=== PATIENT | male | born 1985 | race Caucasian/White ===

== ENCOUNTER → 2017-09-03 | Outpatient (CLI) | payer OTHER ==
--- NOTE | ~2017-09-03 | 2DMMODE ---
[facility] [employer] [employer] [address] 2 D/M-MODE ECHOCARDIOGRAM Name: DEGROOTANTONIO Room #: REG [facility]#: [id number] Admission: 09/03/17 Attend Phys: Johnathon Kinsey MD Discharge: Date of : 89 Date of Service: 09/03/17 1607 Report #: [id number] THIS REPORT FOR: //name// APPROVED REPORT Study performed: 09/03/2017 13:54:15 EXAM: Comprehensive 2D, Doppler, and color-flow Echocardiogram Patient Location: Echo lab Status: routine BSA: 2.06 HR: 74 bpm BP: 133/94 mmHg Other Information Study Quality: Adequate Indications Palpitations 2D Dimensions RVDd: 33.40 mm LVEF(%): 68.77 (>50%) IVSd: 8.47 (7-11mm) LVOT Diam: 23.52 (18-24mm) LVDd: 45.50 mm PWd: 9.29 (7-11mm) Ascending Ao: 26.51 (22-36mm) LVDs: 28.03 (25-40mm) Aortic Root: 30.33 mm IVC: 14.00 mm Hutchinson's LVEF: 68.77 % Volumes Left Atrial Volume (Systole) Single Plane 4CH: 14.86 mL Single Plane 2CH: 23.94 mL LA ESV Index: 11.00 mL/m2 Aortic Valve AoV Peak Stanley.: 1.19 m/s AO Peak Gr.: 5.67 mmHg LVOT Max P.65 mmHg LVOT Max V: 1.08 m/s RANJANA Vmax: 3.93 cm2 Mitral Valve E/A Ratio: 1.4 MV Decel. Time: 225.67 ms MV E Max Stanley.: 0.82 m/s [facility] [place] [address] 2 D/M-MODE ECHOCARDIOGRAM Name: DEGROOTANTONIO RITO Room #: REG [facility].#: [id number] Admission: 09/03/17 Attend Phys: Johnathon Kinsey MD Discharge: Date of : 89 Date of Service: 09/03/17 1607 Report #: [id number] MV A Stanley.: 0.59 m/s MV PHT: 65.44 ms IVRT: 65.74 ms Pulmonary Valve PV Peak Stanley.: 1.06 m/s PV Peak Gr.: 4.50 mmHg Pulmonary Vein P Vein S: 0.68 m/s P Vein D: 0.57 m/s P Vein S/D Ratio: 1.19 Tricuspid Valve RAP Estimate: 5.00 mmHg Left Ventricle The left ventricle is normal size. There is normal left ventricular wall thickness. The left ventricular systolic function is normal. The left ventricular ejection fraction is within the normal range. LVEF is 60-65%. The left ventricular diastolic function is normal. Right Ventricle The right ventricle is normal size. The right ventricular systolic function is normal. Atria The left atrium size is normal. The right atrium size is normal. Aortic Valve The aortic valve is normal in structure. No aortic regurgitation is present. There is no aortic valvular stenosis. Mitral Valve The mitral valve is normal in structure. There is no mitral valve regurgitation noted. No evidence of mitral valve stenosis. Tricuspid Valve The tricuspid valve is normal in structure. There is no tricuspid valve regurgitation noted. Unable to assess PA pressure. Pulmonic Valve The pulmonary valve is normal in structure. Trace pulmonic regurgitation. [employer] [facility] [address] [address] 2 D/M-MODE ECHOCARDIOGRAM Name: ANTONIO DEGROOT Room #: REG [facility].#: [id number] Admission: 09/03/17 Attend Phys: Johnathon Kinsey MD Discharge: Date of : 89 Date of Service: 09/03/17 1607 Report #: [id number] The aortic root is normal in size. IVC is normal in size and collapses >50% with inspiration. Pericardium There is no pericardial effusion. <Conclusion> The left ventricle is normal size. There is normal left ventricular wall thickness. The left ventricular systolic function is normal. The left ventricular diastolic function is normal. The right ventricle is normal size. The left atrium size is normal. There is no aortic valvular stenosis. The mitral valve is normal in structure. There is no pericardial effusion. <ELECTRONICALLY SIGNED> By: Johnathon Kinsey MD 09/03/17 1607 06 06 Johnathon Kinsey MD /INF
--- NOTE | ~2017-09-03 | EXE ---
[facility] [employer] [employer] [place] [address] STRESS ECHOCARDIOGRAM Name: ANTONIO DEGROOT Room #: REG [facility]#: [id number] Admission: 09/03/17 Attend Phys: Johnathon Kinsey MD Discharge: Date of : 89 Date of Service: 09/03/17 1612 Report #: [id number] THIS REPORT FOR: //name// APPROVED REPORT Exam: Stress Echocardiogram Indication: Palpitations Patient Location: Echo lab Stress Nurse: Ariana Correia RN Status: routine Ht: 6 ft 0 in HR: 90 bpm BP: 133/94 mmHg Procedure The patient underwent an Exercise Stress Test using the Angel Protocol. Blood pressure, heart rate, and EKG were monitored. An Echocardiogram was performed by broadcast operations technician in four stages in quad fashion. At peak stress, four selected images were obtained and placed side by side with resting images for comparison. Stress Test Details Stress Test: Exercise stress testing was performed using a Angel protocol. HR Resting HR: 90 bpm Max Heart Rate (APMHR): 190 bpm Max HR Achieved: 190 bpm Target HR (85% APMHR): 161 bpm % of APMHR: 100 Recovery HR: 117 bpm HR response to stress: Normal HR response to stress BP Resting BP: 133/94 mmHg Max BP: 148/96 mmHg Recovery BP: 140/92 mmHg ECG Resting ECG: Sinus Rhythm Stress ECG: Sinus Rhythm ST Change: Non-ischemic Maximum ST Deviation: 0.5 mm Clinical Reason for Termination: Completed protocol Exercise duration: [address] [facility] [place] [address] [place] [address] STRESS ECHOCARDIOGRAM Name: ANTONIO DEGROOT Room #: REG [facility]#: [id number] Admission: 09/03/17 Attend Phys: Johnathon Kinsey MD Discharge: Date of : 89 Date of Service: 09/03/171611 Report #: [id number] Highest Stage Achieved: Stage 4: 4.2 mph at 16% grade. Exercise capacity: 13.10 METs Pre-Stress Echo The resting Echocardiogram showed normal left ventricular contractility with an estimated Ejection Fraction of about 60-65%. Normal wall motion in all segments on baseline images. Post-Stress Echo The stress Echocardiogram showed normal left ventricular contractility with an estimated Ejection Fraction of about >70%. Normal augmentation of wall motion in all segments on post stress images. Clinical No clinical or ECG evidence for ischemia. Conclusion Clinical Response: Non-ischemic Exercise Capacity: Average Stress ECG Response: Non-ischemic Stress Echo Images: Non-ischemic No clinical, EKG or echocardiographic evidence for ischemia. Other Information Study Quality: Good <Conclusion> No clinical, EKG or echocardiographic evidence for ischemia. <ELECTRONICALLY SIGNED> By: Johnathon Kinsey MD 09/03/171611 11 11 Johnathon Kinsey MD /INF
== END ==
LOC: CV 13:01
DX: R00.2 Palpitations (principal)